=== PATIENT | male | born 1960 | race American Indian/Alaskan Native ===

== ENCOUNTER 2020-04-09 21:37 | Observation (INO) | payer MEDICAID ==
[2020-04-09] MEDS ORDERED: NITROGLYCERIN 0.4 MG TAB SUBL SL ONE (21:45)
--- NOTE | 2020-04-09 21:45 | Emergency Department Report ---
ED Chest Pain HPI - General Chief Complaint: Chest Pain Stated Complaint: CHEST PAIN PUI?: No Time Seen by Provider: 04/09/20 21:37 - History of Present Illness Initial Comments: She is a 59-year-old male that presents emergency room complaints of chest pain. Patient states his chest pain started at 10 AM today. Patient states that the chest pain is worsening until he took his nitro. Patient states his chest pain was a 10 out of 10. Patient states his chest pain now is a 3 out of 10. Patient states his chest pain is better with rest and nitro. Patient states his chest pain is worse with exertion. Patient states he took 3 nitro and it reduces chest pain. Patient states he cannot take aspirin but he took Plavix today. Patient states he is on daily Plavix. Patient states he has had short ness of breath as well. Patient states his shortness of breath is better with rest and worse with exertion. Patient denies fever and chills. Patient denies nausea and vomiting. Patient denies recent travel. Patient denies recent international travel. Patient denies exposure to the novel coronavirus. Patient denies sick contacts. Patient denies fever and chills. Patient denies cough. Patient denies diarrhea. Patient denies coming in contact with anybody with symptoms of the novel coronavirus. MD Complaint: chest pain -: Sudden Onset: during rest Pain Location: substernal, left chest Pain Radiation: LUE Severity scale (0 -10): 3 Quality: tightness Consistency: constant Improves With: nitroglycerin, rest Worsens With: exertion re: dyspnea. denies: nausea, vomting, diaphoresis, sense of impending doom Other Symptoms: denies: cough, fever, syncope, rash, acid taste in mouth, leg swelling, palpitations, burping Treatments Prior to Arrival: nitroglycerin, other Aspirin use within the Past 7 Days: (1) Yes - Related Data On Oral Contraceptives: Yes Home Medications Medication Instructions Recorded Confirmed Last Taken Albuterol Sulfate [Albuterol 0.63%] 0.63 mg IH TID PRN 07/15/14 04/01/16 03/01/16 Atorvastatin [Lipitor] 40 mg PO QHS 07/15/14 04/01/16 03/31/16 Bupropion HCl [Wellbutrin Xl] 150 mg PO DAILY 07/15/14 04/01/16 03/31/16 Famotidine [Pepcid] 40 mg PO QHS 07/15/14 04/01/16 03/31/16 Nitroglycerin (Nf) [Nitrostat (Nf)] 0.3 mg SL PRN PRN 07/15/14 04/01/16 Unknown Terbinafine HCl 250 mg PO DAILY 07/15/14 04/01/16 03/31/16 lisinopriL [Lisinopril] 10 mg PO DAILY 07/15/14 04/01/16 03/31/16 Allergies Allergy/AdvReac Type Severity Reaction Status Date / Time codeine Allergy Mild Unknown Verified 02/17/16 12:38 Heart Score - HEART Score History: Highly suspicious EKG: Normal Age: 45-65 Risk factors: > 3 risk factors or hx of atherosclerotic disease Troponin: < normal limit HEART Score: 5 ED Review of Systems ROS: Stated complaint: CHEST PAIN Other details as noted in HPI Constitutional: denies: chills, fever Eyes: denies: eye pain, eye discharge, vision change ENT: denies: ear pain, throat pain Respiratory: denies: cough, shortness of breath, wheezing Cardiovascular: chest pain, dyspnea on exertion. denies: palpitations Endocrine: no symptoms reported Gastrointestinal: denies: abdominal pain, nausea, diarrhea Genitourinary: denies: urgency, dysuria Musculoskeletal: denies: back pain, joint swelling, arthralgia Skin: denies: rash, lesions Neurological: denies: headache, weakness, paresthesias Psychiatric: denies: anxiety, depression Hematological/Lymphatic: denies: easy bleeding, easy bruising ED Past Medical Hx - Past Medical History Previous Medical History?: Yes Hx Hypertension: Yes Hx Heart Attack/AMI: Yes (x3 Most recent was 6 years ago) Hx GERD: Yes Hx Arthritis: Yes Hx Asthma: Yes (Last inhaler use: 6 months ago) Hx COPD: Yes (per pts ) - Surgical History Past Surgical History?: Yes Hx Coronary Stent: Yes (X2) - Family History Family history: no significant - Social History Smoking Status: Former Smoker Substance Use Type: None - Medications Home Medications: Home Medications Medication Instructions Recorded Confirmed Last Taken Type Albuterol Sulfate [Albuterol 0.63%] 0.63 mg IH TID PRN 07/15/14 04/01/16 03/01/16 History Atorvastatin [Lipitor] 40 mg PO QHS 07/15/14 04/01/16 03/31/16 History Bupropion HCl [Wellbutrin Xl] 150 mg PO DAILY 07/15/14 04/01/16 03/31/16 History Famotidine [Pepcid] 40 mg PO QHS 07/15/14 04/01/16 03/31/16 History Nitroglycerin (Nf) [Nitrostat (Nf)] 0.3 mg SL PRN PRN 07/15/14 04/01/16 Unknown History Terbinafine HCl 250 mg PO DAILY 07/15/14 04/01/16 03/31/16 History lisinopriL [Lisinopril] 10 mg PO DAILY 07/15/14 04/01/16 03/31/16 History ED Physical Exam - General Limitations: No Limitations General appearance: alert, in no apparent distress - Head Head exam: Present: atraumatic, normocephalic - Eye Eye exam: Present: normal appearance - ENT ENT exam: Present: mucous membranes moist - Neck Neck exam: Present: normal inspection - Respiratory Respiratory exam: Present: normal lung sounds bilaterally. Absent: respiratory distress, wheezes, chest wall tenderness, accessory muscle use - Cardiovascular Cardiovascular Exam: Present: regular rate, normal rhythm. Absent: systolic murmur, diastolic murmur, rubs, gallop - GI/Abdominal GI/Abdominal exam: Present: soft, normal bowel sounds. Absent: distended, tenderness, guarding - Rectal Rectal exam: Present: deferred - Extremities Exam Extremities exam: Present: normal inspection - Back Exam Back exam: Present: normal inspection - Neurological Exam Neurological exam: Present: alert, oriented X3 - Psychiatric Psychiatric exam: Present: normal affect, normal mood - Skin Skin exam: Present: warm, dry, intact, normal color. Absent: rash ED Course Vital Signs 04/09/20 04/09/20 21:47 21:56 Temperature 98 F Pulse Rate 60 60 Respiratory 16 Rate Blood Pressure 115/69 115/69 O2 Sat by Pulse 96 Oximetry - Reevaluation(s) Reevaluation #1: Patient chest pain has resolved. Patient states he is feeling much better. 04/09/20 22:07 Reevaluation #2: I discussed all results with patient. I discussed plan of care with patient. Patient agrees with plan of care and admission. Patient to be admitted to the hospitalist service. 04/09/20 23:08 - Consultations Consultation #1: Hospitalist consulted for admission. Hospitalist to admit patient. 04/09/20 23:08 LAYTON score - Layton Score Age > 65: (0) No Aspirin use within the Past 7 Days: (1) Yes 3 or more CAD Risk Factors: (1) Yes 2 or more Angina events in past 24 hrs: (1) Yes Known CAD with more than 50% Stenosis: (0) No Elevated Cardiac Markers: (0) No ST Deviation Greater than 0.5mm: (0) No LAYTON Score: 3 ED Medical Decision Making - Lab Data Result diagrams: 04/09/20 21:51 04/09/20 21:51 - EKG Data -: EKG Interpreted by Me EKG shows normal: sinus rhythm, axis, intervals, QRS complexes, ST-T waves Rate: normal - Radiology Data Radiology results: report reviewed, image reviewed interpreted by me: Chest x-ray: No acute findings, no pneumonia, no pneumothorax, no osseous findin gs. CHEST 2 VIEWS INDICATION: Chest Pain. COMPARISON: 03/23/2012. FINDINGS: Support devices: None. Heart: Within normal limits. Lungs/Pleura: Left lung is clear. Mild opacity right base anteriorly and laterally is more prominent and favored to be scarring. No significant pleural effusion. IMPRESSION: Suspected scarring right base. Left lung clear. - Medical Decision Making Patient is a 59-year-old male that presents emergency room with complaints of chest pain. Patient has a significant cardiac history to involve stents in the past. Patient took 3 nitros and Plavix prior to arrival. Patient is unable to take aspirin. Patient given 300 of Plavix. Patient had labs and EKG and chest x-ray done. Patient's EKG does not show a STEMI. Patient's chest x-ray is negative for acute findings. Patient's labs were essentially unremarkable. Patient admitted to the hospitalist service for further evaluation treatment and rule out ACS. - Differential Diagnosis Chest pain, ACS, shortness of breath, Critical Care Time: Yes Critical care time in (mins) excluding proc time.: 35 Critical care attestation.: If time is entered above; I have spent that time in minutes in the direct care of this critically ill patient, excluding procedure time. Critical Care Time: 35 minutes ED Disposition Clinical Impression: GOMEZ (dyspnea on exertion) Chest pain Qualifiers: Chest pain type: unspecified Qualified Code(s): R07.9 - Chest pain, unspecified CAD (coronary artery disease) Qualifiers: Coronary Disease-Associated Artery/Lesion type: [place] artery [place] vs. transplanted heart: [place] heart Associated angina: with unspecified angina Qualified Code(s): I25.119 - Atherosclerotic heart disease of [place] coronary artery with unspecified angina pectoris Disposition: 09 OP ADMIT IP TO THIS HOSP Is pt being admited?: Yes Does the pt Need Aspirin: No Condition: Critical Instructions: Chest Pain (ED) Referrals: BUFFY HARP MD [Primary Care Provider] - 3-5 Days Time of Disposition: 23:10
[2020-04-09] MEDS ORDERED: ONDANSETRON 4 MG/2 ML INJ IV ONE (21:46)
[2020-04-09] MEDS ORDERED: MORPHINE 2 MG/1 ML INJ IV ONE (21:46)
[2020-04-09] MEDS ORDERED: CLOPIDOGREL 300 MG TAB PO ONE (21:46)
[2020-04-09 22:29] LABS: Basophils # (Auto) 0.1 K/mm3 (0.0-0.1); Basophils % (Auto) 0.5 % (0.0-1.8); Eosinophils # (Auto) 0.3 K/mm3 (0.0-0.4); Eosinophils % (Auto) 2.5 % (0.0-4.3); Hematocrit 40.7 % (35.5-45.6); Lymphocytes # (Auto) 3.8 K/mm3 (1.2-5.4); Lymphocytes % (Auto) 36.6 % (13.4-35.0); Mean Corpuscular HGB Conc 34 % (32-34); Mean Corpuscular Volume 95 fl (84-94); Monocytes # (Auto) 0.9 K/mm3 (0.0-0.8); Monocytes % (Auto) 9.1 % (0.0-7.3); Platelet Count 227 K/mm3 (140-440); Red Blood Count 4.28 M/mm3 (3.65-5.03); Red Cell Distribution Width 14.1 % (13.2-15.2)
[2020-04-09 22:50] LABS: BUN/Creatinine Ratio 11
[2020-04-09 22:55] LABS: Alanine Aminotransferase 29 units/L (7-56); Albumin 3.8 g/dL (3.9-5); Blood Urea Nitrogen 10 mg/dL (9-20); Calcium 9.4 mg/dL (8.4-10.2); Hemolysis Index 8
[2020-04-09] MEDS ORDERED: ACETAMINOPHEN 325 MG TAB PO PRN ×2 (23:18)
[2020-04-09] MEDS ORDERED: MORPHINE 4 MG/1 ML INJ IV PRN (23:18)
[2020-04-09] MEDS ORDERED: ONDANSETRON 4 MG/2 ML INJ IV PRN (23:18)
[2020-04-09] MEDS ORDERED: NITROGLYCERIN 0.4 MG TAB SUBL SL PRN (23:18)
--- NOTE | 2020-04-09 23:19 | XRay Report ---
CHEST 2 VIEWS INDICATION: Chest Pain. COMPARISON: 03/23/2012. FINDINGS: Support devices: None. Heart: Within normal limits. Lungs/Pleura: Left lung is clear. Mild opacity right base anteriorly and laterally is more prominent and favored to be scarring. No significant pleural effusion. IMPRESSION: Suspected scarring right base. Left lung clear. Signer Name: Cheo Stein MD Signed: 04/09/2020 10:46 PM Workstation Name: [id number]
--- NOTE | 2020-04-09 23:36 | History and Physical Report ---
History of Present Illness Date of examination: 04/09/20 Date of admission: 04/09/2020 Chief complaint: Chest pain History of present illness: 59-year-old male with known history of hypertension, diabetes mellitus, history of CT about 6 years ago with stent placement, COPD presenting to the emergency room today complaining of chest pain. Chest pain was said to have started early in the morning and he took some sublingual nitroglycerin with some improvement. Chest pain is said to be worse on exertion. On a scale of 10 pain was about 10/10 in severity initially but improved to about 3/10 after taking some sublingual nitroglycerin. He has had associated shortness of breath. He denies any fever or chills, no nausea vomiting, no headache or dizziness. He denies any sick contacts and no recent travel. Denies any contact with anyone with COVID-19. Patient takes a daily Plavix and indicates he is not able to take aspirin. Work-up so far in the emergency room including EKG and labs has been unremarkable Past History Past Medical History: CAD, COPD, hypertension, hyperlipidemia, other (History of asthma) Past Surgical History: PTCA Social history: smoking (Former smoker) Family history: no significant family history Medications and Allergies Allergies Allergy/AdvReac Type Severity Reaction Status Date / Time codeine Allergy Mild Unknown Verified 02/17/16 12:38 Home Medications Medication Instructions Recorded Confirmed Last Taken Type Albuterol Sulfate [Albuterol 0.63%] 0.63 mg IH TID PRN 07/15/14 04/10/20 04/08/20 History Atorvastatin [Lipitor] 40 mg PO QHS 07/15/14 04/10/20 04/09/20 History Bupropion HCl [Wellbutrin Xl] 150 mg PO DAILY 07/15/14 04/10/20 04/09/20 History Famotidine [Pepcid] 40 mg PO QHS 07/15/14 04/10/20 04/09/20 History Nitroglycerin (Nf) [Nitrostat (Nf)] 0.3 mg SL PRN PRN 07/15/14 04/10/20 04/09/20 History Terbinafine HCl 250 mg PO DAILY 07/15/14 04/10/20 04/09/20 History lisinopriL [Lisinopril] 10 mg PO DAILY 07/15/14 04/10/20 04/09/20 History Active Meds: Active Medications Acetaminophen (Tylenol) 650 mg PO Q4H PRN PRN Reason: Pain MILD(1-3)/Fever >100.5/FLORES Aspirin (Ecotrin) 325 mg PO QDAY BOBBY Morphine Sulfate (Morphine) 2 mg IV Q5MIN PRN PRN Reason: Chest Pain Nitroglycerin (Nitrostat) 0.4 mg SL Q5M PRN PRN Reason: Chest Pain Ondansetron HCl (Zofran) 4 mg IV Q8H PRN PRN Reason: Nausea And Vomiting Sodium Chloride (Sodium Chloride Flush Syringe 10 Ml) 10 ml IV BID BOBBY Sodium Chloride (Sodium Chloride Flush Syringe 10 Ml) 10 ml IV PRN PRN PRN Reason: LINE FLUSH Review of Systems Constitutional: no fever, no chills Ears, nose, mouth and throat: no nasal congestion, no sore throat Cardiovascular: chest pain, no palpitations Respiratory: no cough, no shortness of breath Gastrointestinal: no abdominal pain, no nausea, no vomiting, no diarrhea Genitourinary Male: no dysuria, no hematuria, no flank pain Musculoskeletal: no neck pain, no low back pain Integumentary: no rash, no pruritis Neurological: no headaches, no confusion Psychiatric: no anxiety, no depression Exam - Constitutional Vitals: Temp Pulse Resp BP Pulse Ox 98 F 60 16 115/69 96 04/09/20 21:47 04/09/20 21:56 04/09/20 21:47 04/09/20 21:56 04/09/20 21:47 General appearance: Present: no acute distress, well-nourished - EENT Eyes: Present: PERRL, EOM intact ENT: hearing intact, clear oral mucosa, dentition normal - Neck Neck: Present: supple, normal ROM - Respiratory Respiratory effort: normal Respiratory: bilateral: CTA - Cardiovascular Rhythm: regular Heart Sounds: Present: S1 & S2. Absent: gallop, systolic murmur, diastolic murmur, rub - Extremities Extremities: no ischemia, pulses intact, pulses symmetrical, No edema, Full ROM Peripheral Pulses: within normal limits - Abdominal General gastrointestinal: Present: soft, non-tender, non-distended, normal bowel sounds - Integumentary Integumentary: Present: clear, warm, dry. Absent: rash - Musculoskeletal Musculoskeletal: strength equal bilaterally - Psychiatric Psychiatric: appropriate mood/affect, intact judgment & insight, memory intact, cooperative - Neurologic Neurologic: CNII-XII intact, no focal deficits, moves all extremities HEART Score - HEART Score History: Slightly suspicious EKG: Normal Age: 45-65 Risk factors: > 3 risk factors or hx of atherosclerotic disease Troponin: Troponin T < 0.010 ng/mL (0.00-0.029) 04/09/20 21:51 Troponin: < normal limit HEART Score: 3 Results - Labs CBC & Chem 7: 04/09/20 21:51 04/09/20 21:51 Labs: Abnormal lab results 04/09/20 04/09/20 Range/Units 21:51 21:51 MCV 95 H (84-94) fl MCH 33 H (28-32) pg Lymph % (Auto) 36.6 H (13.4-35.0) % [place] % (Auto) 9.1 H (0.0-7.3) % [place] # 0.9 H (0.0-0.8) K/mm3 Glucose 106 H (75-100) mg/dL Albumin 3.8 L (3.9-5) g/dL Assessment and Plan - Patient Problems (1) Chest pain Current Visit: Yes Status: Acute Qualifiers: Chest pain type: unspecified Qualified Code(s): R07.9 - Chest pain, unspecified Plan to address problem: Patient admitted and placed on telemetry. We will check serial cardiac enzymes. Patient has known history of coronary artery disease with CT and has had stent placed about [address] We will place on daily Plavix, sublingual nitroglycerin and IV morphine as needed for chest pain. Patient will be scheduled for stress test. (2) Hypertension Current Visit: Yes Status: Acute Plan to address problem: Will resume routine antihypertensive and monitor vital signs closely. (3) Diabetes mellitus Current Visit: Yes Status: Acute Plan to address problem: We will monitor Accu-Cheks (4) DVT prophylaxis Current Visit: Yes Status: Acute Plan to address problem: Patient placed on subcutaneous heparin. (5) Full code status Current Visit: Yes Status: Acute
[2020-04-10] MEDS: HEPARIN 5,000 UNIT/1 ML VIAL SUB-Q SCH ×2 (06:55→13:37)
[2020-04-10 07:34] LABS: Bilirubin,Urine NEG (Negative); Blood,Urine NEG (Negative); Color,Urine Yellow (Yellow); Mucus,Urine FEW /HPF; Protein,Urine <15 mg/dL mg/dL (Negative); Urobilinogen,Urine < 2.0 mg/dL (<2.0)
[2020-04-10 07:41] LABS: Amphetamine Screen,Urine Negative; Benzodiazepines Screen,Urine Negative; Cannabinoid Screen,Urine Negative; Cocaine Screen,Urine Negative; Methadone Screen,Urine Negative; Opiate Screen,Urine Negative
[2020-04-10 07:59] LABS: Basophils # (Auto) 0.1 K/mm3 (0.0-0.1); Basophils % (Auto) 0.6 % (0.0-1.8); Eosinophils # (Auto) 0.2 K/mm3 (0.0-0.4); Eosinophils % (Auto) 1.6 % (0.0-4.3); Hematocrit 42.7 % (35.5-45.6); Hemoglobin 14.5 gm/dl (11.8-15.2); Lymphocytes # (Auto) 3.2 K/mm3 (1.2-5.4); Lymphocytes % (Auto) 29.4 % (13.4-35.0); Mean Corpuscular HGB Conc 34 % (32-34); Mean Corpuscular Volume 95 fl (84-94); Monocytes # (Auto) 0.9 K/mm3 (0.0-0.8); Monocytes % (Auto) 8.6 % (0.0-7.3); Platelet Count 235 K/mm3 (140-440); Red Blood Count 4.51 M/mm3 (3.65-5.03); Red Cell Distribution Width 14.1 % (13.2-15.2)
[2020-04-10] MEDS ORDERED: REGADENOSON 0.4 MG/5 ML INJ IV ONE (08:00)
[2020-04-10 08:09] LABS: BUN/Creatinine Ratio 13; Blood Urea Nitrogen 12 mg/dL (9-20); Calcium 9.5 mg/dL (8.4-10.2); Hemolysis Index 4
[2020-04-10] MEDS ORDERED: ASPIRIN EC 325 MG TAB PO SCH (10:00)
[2020-04-10] MEDS ORDERED: CLOPIDOGREL 75 MG TAB PO SCH (10:00)
--- NOTE | 2020-04-10 12:20 | Treadmill Report ---
STRESS NUCLEAR MYOCARDIAL PERFUSION IMAGING REPORT The patient is a 59-year-old white gentleman with history of myocardial infarction x3 and multiple stent placements, last one in 2007. Presently, was admitted with an episode of chest pain. Stress nuclear imaging being performed for evaluation of ischemia. The patient exercised on treadmill without any chest pain. No significant EKG changes were noted. Myocardial perfusion images at rest were obtained using [id number]-99m sestamibi at rest, subsequently after stress EKG. Perfusion images along with gating were obtained using the same agent. Following findings were noted. Perfusion images during this stress showed very mild apical inferior defect, which probably is more or less unchanged at rest. Perfusion images during rest were normal. Transient ischemic dilation ratio was found to be 1.02. Gated studies showed left ventricular systolic function calculated to be 64% with normal end-diastolic and end-systolic volumes. FINAL IMPRESSION: 1. Very good exercise tolerance. 2. No chest pain to suggest angina during treadmill stress. 3. No significant EKG changes to suggest ischemia. 4. Minimal change in the inferior wall,probably artifactual, no significant ischemia noted on perfusion images. 5. Normal left ventricular systolic function noted. JOB# [id number] SHRUTHI/THU GONZALEZ
--- NOTE | 2020-04-10 12:50 | Consultation ---
History of Present Illness Consult date: 04/10/20 Requesting physician: DARLYN ROSENTHAL Consult reason: chest pain History of present illness: The pt is a 59-year-old male with a past medical history of CAD s/p PCI x 3 at [facility] per pt report (last PCI was in 2007), HTN, DM, COPD. He is previously unknown to our practice. He presented with c/o chest pain which started y esterday around 10AM. He took SL nitro at the onset of the pain and experienced some relief. The pain was associated with some SOB. His chest pain has resolved since admission. He denies any palpitations, n/v, diaphoresis, dizziness or syncope. Past History Past Medical History: CAD, COPD, hypertension, hyperlipidemia, other (History of asthma) Past Surgical History: PTCA Social history: smoking (Former smoker) Family history: no significant family history Medications and Allergies Allergies Allergy/AdvReac Type Severity Reaction Status Date / Time codeine Allergy Mild Unknown Verified 02/17/16 12:38 Home Medications Medication Instructions Recorded Confirmed Last Taken Type Albuterol Sulfate [Albuterol 0.63%] 0.63 mg IH TID PRN 07/15/14 04/10/20 04/08/20 History Atorvastatin [Lipitor] 40 mg PO QHS 07/15/14 04/10/20 04/09/20 History Bupropion HCl [Wellbutrin Xl] 150 mg PO DAILY 07/15/14 04/10/20 04/09/20 History Famotidine [Pepcid] 40 mg PO QHS 07/15/14 04/10/20 04/09/20 History Nitroglycerin (Nf) [Nitrostat (Nf)] 0.3 mg SL PRN PRN 07/15/14 04/10/20 04/09/20 History Terbinafine HCl 250 mg PO DAILY 07/15/14 04/10/20 04/09/20 History lisinopriL [Lisinopril] 10 mg PO DAILY 07/15/14 04/10/20 04/09/20 History Active Meds: Active Medications Acetaminophen (Tylenol) 650 mg PO Q4H PRN PRN Reason: Pain MILD(1-3)/Fever >100.5/FLORES Clopidogrel Bisulfate (Plavix) 75 mg PO QDAY BOBBY Heparin Sodium (Porcine) (Heparin) 5,000 unit SUB-Q Q8HR [facility] Last Admin: 04/10/20 06:55 Dose: 5,000 unit Documented by: Morphine Sulfate (Morphine) 2 mg IV Q5MIN PRN PRN Reason: Chest Pain Nitroglycerin (Nitrostat) 0.4 mg SL Q5M PRN PRN Reason: Chest Pain Ondansetron HCl (Zofran) 4 mg IV Q8H PRN PRN Reason: Nausea And Vomiting Sodium Chloride (Sodium Chloride Flush Syringe 10 Ml) 10 ml IV BID [facility] Sodium Chloride (Sodium Chloride Flush Syringe 10 Ml) 10 ml IV PRN PRN PRN Reason: LINE FLUSH Review of Systems Constitutional: no weight loss, no weight gain, no fever, no chills, no sweats Ears, nose, mouth and throat: no ear pain, no nose pain, no sinus pressure, no sinus pain Cardiovascular: chest pain, shortness of breath, dyspnea on exertion, no or thopnea, no palpitations, no rapid/irregular heart beat, no edema, no syncope, no lightheadedness Respiratory: shortness of breath, dyspnea on exertion, no cough, no congestion, no wheezing, no pain on inspiration Gastrointestinal: no abdominal pain, no nausea, no vomiting, no diarrhea, no constipation, no change in bowel habits Genitourinary Male: no dysuria, no hematuria, no flank pain, no discharge, no urinary frequency, no urinary hesitancy Musculoskeletal: no neck stiffness, no neck pain, no shooting arm pain, no arm numbness/tingling, no low back pain, no shooting leg pain Integumentary: no rash, no pruritis, no redness, no sores, no wounds Neurological: no head injury, no paralysis, no weakness, no parathesias, no numbness, no tingling, no seizures, no syncope Psychiatric: no anxiety Endocrine: no cold intolerance, no heat intolerance Hematologic/Lymphatic: no easy bruising, no easy bleeding Allergic/Immunologic: no urticaria Physical Examination Vital Signs Pulse Resp Pulse Ox 71 15 96 04/09/20 21:39 04/09/20 21:39 04/09/20 21:39 General appearance: no acute distress HEENT: Positive: PERRL, Normocephaly, Mucus Membranes Moist Neck: Positive: neck supple, trachea midline Cardiac: Positive: Reg Rate and Rhythm, S1/S2 Lungs: Positive: Decreased Breath Sounds Neuro: Positive: Grossly Intact Abdomen: Negative: Tender Skin: Negative: Rash Musculoskeletal: No Pain Extremities: Absent: edema Results 04/10/20 07:21 04/10/20 07:21 Cardiac Enzymes 04/09/20 Range/Units 21:51 AST 24 (5-40) units/L CBC 04/09/20 04/10/20 Range/Units 21:51 07:21 WBC 10.3 10.8 (4.5-11.0) K/mm3 RBC 4.28 4.51 (3.65-5.03) M/mm3 Hgb 14.0 14.5 (11.8-15.2) gm/dl Hct 40.7 42.7 (35.5-45.6) % Plt Count 227 235 (140-440) K/mm3 Lymph # 3.8 3.2 (1.2-5.4) K/mm3 [place] # 0.9 H 0.9 H (0.0-0.8) K/mm3 Eos # 0.3 0.2 (0.0-0.4) K/mm3 Baso # 0.1 0.1 (0.0-0.1) K/mm3 Comprehensive Metabolic Panel 04/09/20 04/10/20 Range/Units 21:51 07:21 Sodium 140 139 (137-145) mmol/L Potassium 3.9 4.4 (3.6-5.0) mmol/L Chloride 103.1 103.3 (98-107) mmol/L Carbon Dioxide 26 23 (22-30) mmol/L BUN 10 12 (9-20) mg/dL Creatinine 0.9 0.9 (0.8-1.3) mg/dL Glucose 106 H 109 H (75-100) mg/dL Calcium 9.4 9.5 (8.4-10.2) mg/dL AST 24 (5-40) units/L ALT 29 (7-56) units/L Alkaline Phosphatase 73 (35-129) units/L Total Protein 6.4 (6.3-8.2) g/dL Albumin 3.8 L (3.9-5) g/dL - Imaging and Cardiology Echo: report reviewed EKG: report reviewed, image reviewed EKG interpretations - Telemetry EKG Rhythm: Sinus Rhythm - EKG Sinus rhythms and dysrhythmias: sinus rhythm Assessment and Plan S/p treadmill MPI stress test today - good exercise tolerance, no chest pain during exertion, nuclear perfusion images negative for ischemia. tte reviewed - EF 50-55%, impaired relaxation. Currently stable cardiac status. Chest pain resolved. AMI r/o. Pt may discharge home from cardiology standpoint. Recommend follow up in our office with Dr. Franco within 2 weeks of discharge ([phone]). The patient has been seen in conjunction with Dr. Franco who agrees with the assessment and plan of care. - Patient Problems (1) Chest pain Current Visit: Yes Status: Resolved Qualifiers: Chest pain type: unspecified Qualified Code(s): R07.9 - Chest pain, unspecified (2) CAD (coronary artery disease) Current Visit: Yes Status: Chronic Qualifiers: Coronary Disease-Associated Artery/Lesion type: [place] artery [place] vs. transplanted heart: [place] heart Associated angina: with unspecified angina Qualified Code(s): I25.119 - Atherosclerotic heart disease of [place] coronary artery with unspecified angina pectoris (3) Stented coronary artery Current Visit: Yes Status: Chronic (4) Hypertension Current Visit: Yes Status: Chronic (5) Diabetes mellitus Current Visit: Yes Status: Chronic (6) COPD (chronic obstructive pulmonary disease) Current Visit: Yes Status: Chronic
--- NOTE | 2020-04-10 13:30 | Cardiac Catherization Report ---
STRESS EKG NUCLEAR IMAGING REPORT INDICATION FOR PROCEDURE: The patient is a 59-year-old gentleman with history of myocardial infarction, coronary stenting in the past, was admitted with chest pain, underwent stress nuclear imaging. This is a stress EKG part. Baseline EKG showed sinus rhythm at a rate of 74 beats per minute, within normal limits. The patient exercised for 8 minutes and 55 seconds on a standard [place] protocol. He attained a heart rate of 144 beats per minute, which is 90% of predicted maximal heart rate. Test was stopped due to shortness of breath. No chest pain. He had peak heart rate. The patient had very mild upgoing ST depressions of 1 mm in the inferolateral leads along with minimal ST elevation in aVL. However, these reverted back to normal immediately after stopping the test. The patient did not have any chest pain. No arrhythmia noted. Appropriate blood pressure response noted. FINAL IMPRESSION: 1. Good exercise tolerance. 2. Negative for angina and negative for ischemia on the EKG. 3. Appropriate blood pressure response. 4. No arrhythmia noted. 5. Nuclear images did not show any evidence of significant ischemia. Normal left ventricular systolic function noted. JOB# [id number] SHRUTHI/THU
--- NOTE | 2020-04-10 16:49 | Discharge Summary ---
Providers - Providers Date of Admission: 04/09/20 23:34 Date of discharge: 04/10/20 Attending physician: WINTER PEOPLES 04/09/20 Consult to Cardiac Rehabilitation [CONS] Routine Reason For Exam: Phase I 04/09/20 23:18 Consult to Cardiology [CONS] Routine Consulting Provider: KANIKA BARTON Reason For Exam: chest pain Primary care physician: BUFYF HARP Hospitalization Condition: Critical Hospital course: 59-year-old male with known history of hypertension, diabetes mellitus, history of [facility] about 6 years ago with stent placement, COPD presenting to the emergency room today complaining of chest pain. Chest pain was said to have started early in the morning and he took some sublingual nitroglycerin with some improvement. Chest pain is said to be worse on exertion. On a scale of 10 pain was about 10/10 in severity initially but improved to about 3/10 after taking some sublingual nitroglycerin. He has had associated shortness of breath. He denies any fever or chills, no nausea vomiting, no headache or dizziness. He denies any sick contacts and no recent travel. Denies any contact with anyone with COVID-19. Patient takes a daily Plavix and indicates he is not able to take aspirin. Work-up so far in the emergency room including EKG and labs has been unremarkable (1) acute coronary syndrome Current Visit: Yes Status: Acute Qualifiers: Chest pain type: unspecified Qualified Code(s): R07.9 - Chest pain, unspecified Serial troponins were negative Lexiscan was negative Differential diagnosis of costochondritis and GERD Patient also to reduce her weight (2) Hypertension Current Visit: Yes Status: Acute Plan to address problem: Will resume routine antihypertensive and monitor vital signs closely. (3) Diabetes mellitus Current Visit: Yes Status: Acute Plan to address problem: We will monitor Accu-Cheks (4) DVT prophylaxis Current Visit: Yes Status: Acute Plan to address problem: Patient placed on subcutaneous heparin. (5) Full code status Current Visit: Yes Status: Acute Disposition: DC-01 TO HOME OR SELFCARE - Discharge Diagnoses (1) Acute coronary syndrome Status: Acute (2) CAD (coronary artery disease) Status: Chronic Qualifiers: Coronary Disease-Associated Artery/Lesion type: [place] artery [place] vs. transplanted heart: [place] heart Associated angina: with unspecified angina Qualified Code(s): I25.119 - Atherosclerotic heart disease of [place] coronary artery with unspecified angina pectoris Comment: 32 minutes (3) Diabetes mellitus Status: Chronic (4) Hypertension Status: Chronic Core Measure Documentation - Palliative Care Palliative Care/ Comfort Measures: Not Applicable - Core Measures Any of the following diagnoses?: none Exam - Constitutional Vitals: Temp Pulse Resp BP Pulse Ox 98.1 F 68 18 143/120 95 04/10/20 03:52 04/10/20 03:52 04/10/20 03:52 04/10/20 10:47 04/10/20 03:52 General appearance: Present: no acute distress, well-nourished - EENT Eyes: Present: PERRL ENT: hearing intact, clear oral mucosa - Neck Neck: Present: supple, normal ROM - Respiratory Respiratory effort: normal Respiratory: bilateral: CTA - Cardiovascular Heart rate: 78 Rhythm: regular Heart Sounds: Present: S1 & S2. Absent: rub, click - Extremities Extremities: pulses symmetrical, No edema Peripheral Pulses: within normal limits - Abdominal General gastrointestinal: Present: soft, non-tender, non-distended, normal bowel sounds Male genitourinary: Present: normal - Integumentary Integumentary: Present: clear, warm, dry - Musculoskeletal Musculoskeletal: gait normal, strength equal bilaterally - Psychiatric Psychiatric: appropriate mood/affect, intact judgment & insight - Neurologic Neurologic: CNII-XII intact, moves all extremities Plan Activity: no restrictions Diet: low salt, diabetic Follow up with: BUFFY HARP MD [Primary Care Provider] - 3-5 Days ZACK THOMAS MD [Staff Physician] - 7 Days
[2020-04-10 20:05] VITALS: BP 119/76
== END 2020-04-10 18:15 | disposition home or self-care (01) ==
LOC: ED 21:37 → 4A 23:34
PROVIDERS: ADMIT Internal Medicine Geriatric Medicine; ATTEND Internal Medicine
DX: I24.9 Acute ischemic heart disease, unspecified (principal); I25.119 Atherosclerotic heart disease of native coronary artery with unspecified angina pectoris; I10 Essential (primary) hypertension; E11.9 Type 2 diabetes mellitus without complications; I25.2 Old myocardial infarction; J44.9 Chronic obstructive pulmonary disease, unspecified; E78.5 Hyperlipidemia, unspecified; K21.9 Gastro-esophageal reflux disease without esophagitis; M19.90 Unspecified osteoarthritis, unspecified site; Z87.891 Personal history of nicotine dependence; Z95.5 Presence of coronary angioplasty implant and graft; Z79.899 Other long term (current) drug therapy; Z88.5 Allergy status to narcotic agent
CPT/HCPCS: 36415; 71046; 78452; 80048; 80053; 80307; 81001; 84484; 85025; 93005; 93017; 93306; 96372; 96374; 96375; 99291; A9502; G0378; J1644; J2270; J2405